=== PATIENT | male | born 1970 | race Two or more races ===

== ENCOUNTER → 2021-08-17 11:00 | Outpatient (BNVA) | payer SELFPAY | PROVIDERS: Visit Provider Physician Assistant Medical | DX: Z02.79 Encounter for issue of other medical certificate (principal) ==

== ENCOUNTER 2022-07-16 08:50 | Emergency (ER) | payer OTHER, SELFPAY ==
--- NOTE | ~2022-07-16 | CT_ITS ---
EXAMINATION: CT HEAD WITHOUT CONTRAST CLINICAL INFORMATION: Elevated blood pressure COMPARISON: None TECHNIQUE: Contiguous axial imaging was performed from the skull base to vertex without intravenous administration of contrast. This CT examination was performed using dose optimization techniques as appropriate, variously including the following: *Automated exposure control *Adjustment of mA and/or kV according to patient size (this includes techniques or standardized protocols for targeted exams where dose is matched to indication/reason for exam; i.e. extremities or head) *Use of iterative reconstruction technique DLP: 733 mGy-cm FINDINGS: There is no evidence of acute intracranial hemorrhage or territorial infarction. No abnormal mass effect or midline shift is seen. Sanchez to white matter differentiation is well preserved. No extra-axial fluid collections are identified. No significant volume loss. No hydrocephalus. There is no abnormal attenuation within the brain parenchyma. The osseous structures and soft tissues are normal. The mastoid air cells and visualized portions of the paranasal sinuses are well aerated. CT/CT head/brain wo IV con IMPRESSION: No acute intracranial pathology.
[2022-07-16 09:51] VITALS: BP 200/101; PULSE 59; RESP 18; TEMP 36.8; O2SAT 100; BMI 25.2
[2022-07-16] MEDS: Ondansetron ODT 4 MG TAB.RAPDIS TRANSLINGU (09:55)
--- NOTE | 2022-07-16 11:28 | ECG_ITS ---
Test Reason : HYPERTENSION Blood Pressure : / mmHG Vent. Rate : 054 BPM Atrial Rate : 054 BPM P-R Int : 130 ms QRS Dur : 088 ms QT Int : 412 ms P-R-T Axes : 005 042 045 degrees QTc Int : 390 ms Sinus bradycardia Otherwise normal ECG No previous ECGs available Referred By: Oneal Guerra Electronically Signed By:TEJA CROCKER
--- NOTE | 2022-07-16 11:32 | ED_ITS ---
HPI - General Adult General Chief complaint: Recheck/Abnormal Lab/Rx Stated complaint: HBP Time Seen by Provider: 07/16/22 10:08 Source: patient Mode of arrival: ambulatory Limitations: no limitations History of Present Illness HPI narrative: 51-year-old male history of high blood pressure presents to the ED for ev aluation of some dizziness. Patient states mild left upper molar dental pain due to poor dental hygiene but states having headache and slight dizziness. Patient states he took his blood pressure meds this morning. Patient blood pressure at triage systolic over 200. Patient denies any facial droop, paralysis of extremities, chest pain, shortness of breath, slurred speech or any recent drug use. Related Data Previous Rx's Medication Instructions Recorded amoxicillin 875 mg-potassium 1 tab PO Q12H 10 days #20 tabs 07/16/22 clavulanate 125 mg tablet naproxen 500 mg tablet 500 mg PO BID PRN pain 7 days #20 07/16/22 tabs Allergies Allergy/AdvReac Type Severity Reaction Status Date / Time morphine Allergy Agitated Verified 07/16/22 09:51 Review of Systems Review of Systems: headache. elevated blood pressure. SLight dental pain. Yes all other systems are reviewed and are negative PMFSH Social History Social History Advance Directives: No Advance Directives Information Provided: No Physical Exam ED Vital Signs: Vital Signs - 24 hr 07/16/22 09:51 07/16/22 13:22 07/16/22 14:59 Temperature 98.3 F Pulse Rate 59 54 53 Respiratory Rate 18 16 16 Blood Pressure 200/101 H 214/113 H 168/94 H Pulse Oximetry 100 98 95 Oxygen Delivery Method Room Air Room Air Room Air BMI result Body Mass Index 25.2 Const General: cooperative, healthy appearing, comfortable, no acute distress, well developed, alert, awake and Physically active Orientation/consciousness: oriented to person, oriented to place, oriented to time and patient oriented x3 HENMT Other: Negative for any facial swelling, neck swelling, or submandibular mass Head: Yes normal to inspection, Yes No palpable skull fracture present, Yes normocephalic, Yes atraumatic and No abrasion Ears: hearing grossly normal bilaterally, external ears normal, TM's normal bilaterally, EAC's normal, mastoids normal and no periauricular adenopathy Teeth image: 1. Dental tenderness on palpation. negative for pus discharge, gum swelling, trismsus, drooling, or abscess. Eyes General: appearance normal, both eyes and all related structures Neck Neck: Yes normal visual inspection, Yes full ROM, Yes no lymphadenopathy, Yes no meningeal signs, Yes trachea midline, Yes supple, No anterior neck swelling and No tender Chest Chest palpation & inspection: normal inspection of the chest and normal palpation of entire chest wall Resp Effort & Inspection: normal respiratory effort and able to speak in complete sentences Cardio Jugular venous distension: no JVD Heart sounds: S1 normal heart sound present and S2 normal heart sound present GI Inspection: Yes normal to inspection and No abdominal wall ecchymosis Palpation (GI): Soft to palpation, not firm, nontender, no guarding and not rigid General: No CVA tenderness and Yes no CVA tenderness Back/Spine/Pelvis Back: no CVA tenderness, No CVA tenderness and No back tenderness Skin General skin exam: no rashes or lesions noted and elasticity normal Neuro General: oriented to person, oriented to place, oriented to time, patient oriented x3, gait normal, tone normal, Normal light touch and pain sensation, no meningeal signs, no focal motor deficits and CN's II-XI intact bilaterally Extrem General: Yes normal to inspection and Yes full ROM Psych Appearance: grossly normal, well kempt and not disheveled NIH Stroke Scale Internal: Initial- Upon Arrival Level of Consciousness: Alert Level of Consciousness Questions: Answers both questions correctly Level of Consciousness Commands: Performs both tasks correctly Best Gaze: Normal Visual: No visual loss Facial Palsy: Normal Motor Arm (Right): No drift Motor Arm (Left): No drift Motor Leg (Right): No drift Motor Leg (Left): No drift Limb Ataxia: Absent Sensory: Normal Best Language: No aphasia Dysarthia: Normal Extinction and Inattention: No abnormality Score: 0 Course Course Course Narrative: Patient repeat blood pressure systolic over 200 due to aging high blood pressure patient will have a medical evaluation consisted of cardiac evaluation, labs to check kidney function, and head CT scan. Negative for any neuro deficits. Reevaluation(s) Reevaluation #1: Patient's blood pressure improved with clonidine. Patient's CT scan came back negative for stroke. Patient labs are normal. Two troponins negative. EKG negative STEMI. Patient not having any neural deficits. EKG negative STEMI. Patient is safe for discharge Time: 17:21 Medical Decision Making [facility] Narrative Medical decision making narrative: Hypertension. Toothache Lab Data Result diagrams: 07/16/22 11:54 07/16/22 11:54 Labs: Lab Results 07/16/22 07/16/22 07/16/22 Range/Units 11:54 11:54 11:54 WBC 11.0 H (4.8-10.8) X10*3/uL RBC 4.52 L (4.60-5.80) X10*6/uL Hgb 13.1 L (14.0-18.0) g/dl Hct 37.1 L (42.0-52.0) % MCV 82.1 (80.0-98.0) fL MCH 29.0 (27.0-33.0) pg MCHC 35.3 (31.0-36.0) g/dl RDW 11.9 (11.0-16.0) % Plt Count 250 (160-400) X10*3/uL MPV 10.1 (9.4-12.4) fL Immature Gran % (Auto) 0.5 H (0.0-0.4) % Neut % (Auto) 78.6 H (45-73) % Lymph % (Auto) 13.8 L (20-40) % Traill % (Auto) 4.2 (2-11) % Eos % (Auto) 2.3 (0-4) % Baso % (Auto) 0.6 (0-2) % Lymph # (Auto) 1.5 (1.2-4.9) X10*3/uL Traill # (Auto) 0.5 (0.1-1.2) X10*3/uL Eos # (Auto) 0.3 (0.0-0.4) X10*3/uL Baso # (Auto) 0.1 (0.0-0.2) X10*3/uL Abs Immat Gran (auto) 0.05 H (0.00-0.03) X10*3/uL Absolute Neuts (auto) 8.7 H (2.0-8.3) x10*3/uL Absolute Nucleated RBC 0.000 (0.0-0.012) X10*3/uL Nucleated RBC % (auto) 0.0 (0.0-0.2) /100WBC PT 11.1 (10.0-13.1) SEC INR 1.0 (0.9-1.1) APTT 31.3 (26.0-36.4) SEC Sodium 141 (135-145) mmol/L Potassium 4.4 (3.3-5.1) mmol/L Chloride 107 (96-108) mmol/L Carbon Dioxide 24 (22-29) mmol/L Anion Gap 14 (12-20) BUN 12 (9-16) mg/dL Creatinine 0.75 (0.5-1.4) mg/dL Estim Creat Clear Calc 98.6 Estimated GFR > 60 Random Glucose 110 (60-115) mg/dL Calcium 9.0 (8.4-10.2) mg/dL Total Bilirubin 0.6 (0.0-1.0) mg/dL AST 17 (5-37) U/L ALT 32 (0-40) U/L Alkaline Phosphatase 127 H (39-117) U/L Troponin I High Sens (<3.5-35.0) ng/L Total Protein 7.0 (6.5-8.0) g/dL Albumin 4.5 (3.5-5.0) g/dL 07/16/22 07/16/22 Range/Units 11:54 15:32 WBC (4.8-10.8) X10*3/uL RBC (4.60-5.80) X10*6/uL Hgb (14.0-18.0) g/dl Hct (42.0-52.0) % MCV (80.0-98.0) fL MCH (27.0-33.0) pg MCHC (31.0-36.0) g/dl RDW (11.0-16.0) % Plt Count (160-400) X10*3/uL MPV (9.4-12.4) fL Immature Gran % (Auto) (0.0-0.4) % Neut % (Auto) (45-73) % Lymph % (Auto) (20-40) % Traill % (Auto) (2-11) % Eos % (Auto) (0-4) % Baso % (Auto) (0-2) % Lymph # (Auto) (1.2-4.9) X10*3/uL Traill # (Auto) (0.1-1.2) X10*3/uL Eos # (Auto) (0.0-0.4) X10*3/uL Baso # (Auto) (0.0-0.2) X10*3/uL Abs Immat Gran (auto) (0.00-0.03) X10*3/uL Absolute Neuts (auto) (2.0-8.3) x10*3/uL Absolute Nucleated RBC (0.0-0.012) X10*3/uL Nucleated RBC % (auto) (0.0-0.2) /100WBC PT (10.0-13.1) SEC INR (0.9-1.1) APTT (26.0-36.4) SEC Sodium (135-145) mmol/L Potassium (3.3-5.1) mmol/L Chloride (96-108) mmol/L Carbon Dioxide (22-29) mmol/L Anion Gap (12-20) BUN (9-16) mg/dL Creatinine (0.5-1.4) mg/dL Estim Creat Clear Calc Estimated GFR Random Glucose (60-115) mg/dL Calcium (8.4-10.2) mg/dL Total Bilirubin (0.0-1.0) mg/dL AST (5-37) U/L ALT (0-40) U/L Alkaline Phosphatase (39-117) U/L Troponin I High Sens < 3.5 < 3.5 (<3.5-35.0) ng/L Total Protein (6.5-8.0) g/dL Albumin (3.5-5.0) g/dL ECG Data Interpretation: Sinus bradycardia. Ventricular rate 54. MD interval 130. QRS 88. QTC 390. Negative STEMI Discharge Plan Discharge Clinical Impression: Toothache, Hypertension Patient Disposition: Home, Self-Care Instructions: Hypertension (ED), Toothache (ED) Additional Instructions: Your EKG, blood work, head CT scan came back normal. Please follow-up with her primary care provider. Call them tomorrow to see if he needed an increase in dosage of your high blood pressure medication or new medication altogether. You will be discharged with pain medication. Return to the ED immediately for any headache, blurry vision, slurred speech, facial droop, nausea, vomiting, paralysis of extremities, loss of vision, facial swelling, tongue swelling, neck swelling, drooling, change in voice, or any other concerning symptoms. Also follow-up with dentist for dental pain. Due to Dental pain you will be discharged with antibiotics Prescriptions: New naproxen 500 mg tablet 500 mg PO BID PRN (Reason: pain) 7 Days Qty: 20 0RF amoxicillin-pot clavulanate 875-125 mg tablet 1 tab PO Q12H 10 Days Qty: 20 0RF Stand Alone Forms: Work/School Release Interventions: ED Discharge Assessment Last Done: 07/16/22 17:55 Discharge Date/Time: 07/16/22 17:55 Print Language: Polish
[2022-07-16 11:59] LABS: MANUAL DIFF FLAG NO
[2022-07-16 12:07] LABS: Basophils Absolute Auto 0.1 X10*3/uL (0.0-0.2); Basophils Percent Auto 0.6 % (0-2); Eosinophils Absolute Auto 0.3 X10*3/uL (0.0-0.4); Eosinophils Percent Auto 2.3 % (0-4); Hematocrit 37.1 % (42.0-52.0); Hemoglobin 13.1 g/dl (14.0-18.0); Imm Gran Abs Auto 0.05 X10*3/uL (0.00-0.03); Imm Gran Pct Auto 0.5 % (0.0-0.4); Lymphocytes Absolute Auto 1.5 X10*3/uL (1.2-4.9); Lymphocytes Percent Auto 13.8 % (20-40); Mean Corpuscular HGB Conc 35.3 g/dl (31.0-36.0); Mean Corpuscular Volume 82.1 fL (80.0-98.0); Mean Platelet Volume 10.1 fL (9.4-12.4); Monocytes Absolute Auto 0.5 X10*3/uL (0.1-1.2); Monocytes Percent Auto 4.2 % (2-11); Neutrophils Absolute Auto 8.7 x10*3/uL (2.0-8.3); Neutrophils Percent Auto 78.6 % (45-73); Platelet Count 250 X10*3/uL (160-400); Red Blood Count 4.52 X10*6/uL (4.60-5.80); Red Cell Distribution Width 11.9 % (11.0-16.0)
[2022-07-16 12:14] LABS: Prothrombin Time 11.1 SEC (10.0-13.1)
[2022-07-16 12:16] LABS: Partial Thromboplastin Time 31.3 SEC (26.0-36.4)
[2022-07-16 12:19] LABS: Alanine Aminotransferase 32 U/L (0-40); Albumin Level 4.5 g/dL (3.5-5.0); Alkaline Phosphatase 127 U/L (39-117); Anion Gap 14 (12-20); Aspartate Amino Transferase 17 U/L (5-37); Bilirubin Total 0.6 mg/dL (0.0-1.0); Blood Urea Nitrogen 12 mg/dL (9-16); Carbon Dioxide 24 mmol/L (22-29); Chloride 107 mmol/L (96-108); Creatinine Clr Calc Pharmacy 98.6; Estimated Glomerular Filt Rate > 60; Glucose Random 110 mg/dL (60-115); Potassium 4.4 mmol/L (3.3-5.1); Sodium 141 mmol/L (135-145)
[2022-07-16 12:27] LABS: Troponin-I High Sensitivity < 3.5 ng/L (<3.5-35.0)
[2022-07-16 13:22] VITALS: BP 214/113; PULSE 54; RESP 16; O2SAT 98
--- NOTE | 2022-07-16 13:22 | PC.NURSE ---
remains hypertensive, denies headache. PA aware.
[2022-07-16] MEDS: cloNIDine HCL 0.2 MG TABLET PO (14:05)
[2022-07-16 14:59] VITALS: BP 168/94; PULSE 53; RESP 16; O2SAT 95
[2022-07-16 16:01] LABS: Troponin-I High Sensitivity < 3.5 ng/L (<3.5-35.0)
== END 2022-07-16 17:55 | disposition home or self-care (01) ==
PROVIDERS: Physician Assistant; Emergency Provider Emergency Medicine
DX: R79.89 Other specified abnormal findings of blood chemistry (principal); K08.89 Other specified disorders of teeth and supporting structures; I10 Essential (primary) hypertension; R00.0 Tachycardia, unspecified; Z79.899 Other long term (current) drug therapy
CPT/HCPCS: 36415; 70450; 80053; 84484; 85025; 85610; 85730; 93005; 99284

== ENCOUNTER → 2023-08-09 14:45 | Outpatient (BNVA) | payer SELFPAY | PROVIDERS: Visit Provider Physician Assistant Medical | DX: Z02.79 Encounter for issue of other medical certificate (principal) ==

== ENCOUNTER 2025-10-20 08:56 | Outpatient (AMB) | payer OTHER, SELFPAY ==
--- OUTSIDE RECORDS SUMMARY | 2025-10-14 23:59 | XMS_ITS | Continuity of Care Document ---
Author Organization [facility] Catherine harjit Address [address] [place] [address] [place] [address]- Care Team Providers Care Dispenser Operator Name Role Phone Not on Staff, PCP Primary Care Physician Unavail able Encounter [facility] [place] Date(s): 09/14/25 - 10/14/25 [facility] [address] [place] [address] Drive [address] [place] [address]- Encounter Type: Triage Allergies, Adverse Reactions, Alerts Substance Criticality Severity Reaction Reaction Severity Status morphine Active Medications amiodarone 200 mg oral tablet 200 mg, By Mouth, 2 times a day, # 60 tablet, Refills 0, Tot. Refills 0, Maintenance, 08/29/25 8:50:00 AM EDT, Route to Pharmacy Electronically, [facility], Partial fill upon patient request if the prescription is for a schedule II opioid drug., 175, cm, 08/29/25 8:30:00 EDT, Height, 63.6, kg, 08/25/25 6:44:00 EDT, Dry Weight Start Date: 08/29/25 Stop Date: 09/28/25 Status: Ordered Medication Dispense Status: Completed Quantity: 60.0 Unit: tablet Total Allowed Fills: 1 Fills Dispensed: 0 amLODIPine 5 mg oral tablet 5 mg, 1, tablet, By Mouth, Daily, # 90 tablet, Refills 0, Tot. Refills 0, Maintenance, 10/01/25 10:52:00 AM EST, Route to Pharmacy Electronically, [facility]/pharmacy #[id number], Partial fill upon patient requestif the prescription is for a schedule II opioid drug., 175, cm, 10/01/25 10:34:00 EST, Height, 63.6, kg, 08/25/25 6:44:00 EDT, Dry Weight Start Date: 10/01/25 Status: Ordered Medication Dispense Status: Completed Quantity: 90.0 Unit: tablet Total Allowed Fills: 1 Fills Dispensed: 0 aspirin 81 mg oral delayed release tablet 1 tablet = 81 mg, By Mouth, Daily, for 60 days, # 60 tablet, 0 Refills, Hard Stop 11/07/25 9:47:00 AM EST, 09/08/25 9:47:00 AM EST, EC Tablet, [id number], Partial fill upon patient request if the prescription is for a schedule II opioid drug., 175, cm, 09/08/25 9:17:00 EST, Height, 63.6, kg,08/25/25 6:44:00 EDT, Dry Weight Start Date: 09/08/25 Stop Date: 11/07/25 Status: Ordered Medication Dispense Status: Completed Quantity: 60.0 Unit: tablet Total Allowed Fills: 1 Fills Dispensed: 0 Aspirin Low Dose 81 mg oral delayed release tablet 1 tablet = 81 mg, By Mouth, Daily, # 90 tablet, 3 Refills, Maintenance, 10/01/25 10:53:00 AM EST, ECTablet, [id number], Partial fill upon patient request if the prescription is for a scheduleII opioid drug., 175, cm, 10/01/25 10:34:00 EST, Height, 63.6, kg, 08/25/25 6:44:00 EDT, Dry Weight Start Date: 10/01/25 Status: Ordered Medication Dispense Status: Completed Quantity: 90.0 Unit: tablet Total Allowed Fills: 4 Fills Dispensed: 0 atorvastatin 80 mg oral tablet 1 tablet = 80 mg, By Mouth, Daily at bedtime, # 90 tablet, 3 Refills, Maintenance, 11/07/25 9:47:00 AM EST, Tablet, [id number], Partial fill upon patient request if the prescription is for a schedule II opioid drug., 175, cm, 10/01/25 10:34:00 EST, Height, 63.6, kg, 08/25/25 6:44:00 EDT, DryWeight Start Date: 11/07/25 Status: Ordered Medication Dispense Status: Completed Quantity: 90.0 Unit: tablet Total Allowed Fills: 4 Fills Dispensed: 0 atorvastatin 80 mg oral tablet 1 tablet = 80 mg, By Mouth, Daily at bedtime, for 60 days, # 60 tablet, 0 Refills, Hard Stop 11/07/25 9:47:00 AM EST, 09/08/25 9:47:00 AM EST, Tablet, [facility]/pharmacy #[id number], Partial fill upon patient request if the prescription is for a schedule II opioid drug., 175, cm, 09/08/25 9:17:00 EST, Height, 63.6, kg, 08/25/25 6:44:00 EDT, Dry Weight Start Date: 09/08/25 Stop Date: 11/07/25 Status: Ordered Medication Dispense Status: Completed Quantity: 60.0 Unit: tablet Total Allowed Fills: 1 Fills Dispensed: 0 furosemide 20 mg oral tablet 1, capsule, By Mouth, Daily, # 7 capsule, Refills 0, Tot. Refills 0, Soft Stop, 08/29/25 8:51:00 AM EDT, Route to Pharmacy Electronically, [facility], Partial fill upon patient request if the prescription is for a schedule II opioid drug., 175, cm, 08/29/25 8:30:00 EDT, Height, 63.6, kg, 08/25/25 6:44:00 EDT, Dry Weight Start Date: 08/29/25 Stop Date: 09/05/25 Status: Ordered Medication Dispense Status: Completed Quantity: 7.0 Unit: capsule Total Allowed Fills: 1 Fills Dispensed: 0 metoprolol succinate 50 mg oral capsule, extended release 1 capsule = 50 mg, By Mouth, Daily, # 90 capsule, 3 Refills, Maintenance, 10/01/25 10:57:00 AM EST, ER Capsule, [facility]/pharmacy #[id number], Partial fill upon patient request if the prescription is for a schedule II opioid drug., 175, cm, 10/01/25 10:34:00 EST, Height, 63.6, kg, 08/25/25 6:44:00 EDT, Dry Weight Start Date: 10/01/25 Status: Ordered Medication Dispense Status: Completed Quantity: 90.0 Unit: capsule Total Allowed Fills: 4 Fills Dispensed: 0 Plavix 75 mg oral tablet 75 mg, 1, tablet, By Mouth, Daily, # 90 tablet, Refills 3, Tot. Refills 3, Maintenance, 11/07/25 9:48:00 AM EST, Route to Pharmacy Electronically, [facility]/pharmacy #[id number], Partial fill upon patient requestif the prescription is for a schedule II opioid drug., 175, cm, 10/01/25 10:34:00 EST, Height, 63.6, kg, 08/25/25 6:44:00 EDT, Dry Weight Start Date: 11/07/25 Status: Ordered Medication Dispense Status: Completed Quantity: 90.0 Unit: tablet Total Allowed Fills: 4 Fills Dispensed: 0 Plavix 75 mg oral tablet 75 mg, 1, tablet, By Mouth, Daily, for 60 days, # 60 tablet, Refills 0, Tot. Refills 0, Hard Stop 11/07/25 9:48:00 AM EST, 09/08/25 9:48:00 AM EST, Route to Pharmacy Electronically, [facility]/pharmacy #[id number], Partial fill upon patient request if the prescription is for a schedule II opioid drug., 175, cm, 09/08/25 9:17:00 EST, Height, 63.6, kg, 08/25/25 6:44:00 EDT, Dry Weight Start Date: 09/08/25 Stop Date: 11/07/25 Status: Ordered Medication Dispense Status: Completed Quantity: 60.0 Unit: tablet Total Allowed Fills: 1 Fills Dispensed: 0 Vashe Topical Solution 475 mL, Topically, 2 times a day, PRN Other, 0 Refills, Maintenance, Solution Start Date: 08/29/25 Status: Ordered Medication Dispense Status: Completed Total Allowed Fills: 1 Fills Dispensed: 0 Problem List Condition Confirmation Course Effective Dates Status Health St atus Informant S/P CABG x 4 Confirmed Active Smoking Confirmed Active Social History Social History Type Response Smoking Status Current every day sm oker; Other: PT WOULD LIKE TO QUIT SMOKING; entered on: 07/09/14 Sex Male Sex Representation Male (finding) Patient Care team information Care Team Personnel Name: Joan Rodriguez RN Position: S RN Member Role: Primary Care Nurse Name: Kimmy Moreira RN Position: S RN Member Role: Primary Care Nurse Name: Bisi Black RN Position: S RN Member Role: Primary Care Nurse Name: Angelica Barone RN Position: [facility] RN Member Role: Primary Care Nurse Name: Not on Staff, PCP Position: [facility] Physician (General Medicine) Member Role: PCP Name: Vinh Rodriguez RN Position: [facility] RN Member Role: Primary Care Nurse Name: Jersey Gallegos RN Position: [facility] RN Member Role: Primary Care Nurse Name: Sharri Cohen RN Position: [facility] RN Member Role: Primary Care Nurse Care Team Related Persons Name: DAVID PATEL Name: JEET MANN Insurance Providers Guarantor name: AUBRIE PATEL [facility] Information #: 1 Payer: [employer] Payer Identifier: JULIAN Member Number: [id number] Group Number: [id number] Subscriber Identifier: JULIAN Relationship to Subscriber: self Coverage Type: MEDICAID Coverage Verification Date: Telecom: JULIAN Address:
--- OUTSIDE RECORDS SUMMARY | 2025-10-14 23:59 | XMS_ITS | Continuity of Care Document ---
Author Organization [facility] Catherine harjit Address [address] [place] [address] [place] [address]- Care Team Providers Care Networking Administrator Name Role Phone Not on Staff, PCP Primary Care Physician Unavail able En[place] [facility] [place](s): 09/14/25 - 10/14/25 [facility] [address] [place] [address] Drive [address] [place] [address]- Encounter Type: Triage Allergies, Adverse Reactions, Alerts Substance Criticality Severity Reaction Reaction Severity Status morphine Active Medications amiodarone 200 mg oral tablet 200 mg, By Mouth, 2 times a day, # 60 tablet, Refills 0, Tot. Refills 0, Maintenance, 08/29/25 8:50:00 AM EDT, Route to Pharmacy Electronically, [facility], Partial fill upon patient request [...] 10:52:00 AM EST, Route to Pharmacy Electronically, [facility]/pharmacy #[id number], Partial fill upon patient requestif the [...] AM EST, 09/08/25 9:47:00 AM EST, Tablet, [id number], Partial fill upon patient request if [...] 8:51:00 AM EDT, Route to Pharmacy Electronically, [facility], Partial fill upon patient request if [...] Maintenance, 10/01/25 10:57:00 AM EST, ER Capsule, [facility]/pharmacy #[id number], Partial fill upon patient request if [...] 9:48:00 AM EST, Route to Pharmacy Electronically, [facility]/pharmacy #[id number], Partial fill upon patient requestif the [...] 9:48:00 AM EST, Route to Pharmacy Electronically, [id number], Partial fill upon patient request [...] Care Nurse Name: Angelica Barone RN Position: [facility] RN Member Role: Primary Care Nurse Name: Not on Staff, PCP Position: [facility] Physician (General Medicine) Member Role: PCP Name: Vinh Rodriguez RN Position: [facility] RN Member Role: Primary Care Nurse Name: Jersey Gallegos RN Position: [facility] RN Member Role: Primary Care Nurse Name: Sharri Cohen RN Position: [facility] RN Member Role: Primary Care Nurse Care Team Related Persons Name: DAVID PATEL Name: JEET MANN Insurance Providers Guarantor name: AUBRIE PATEL [facility] Information #: 1 Payer: [employer] Payer Identifier: JULIAN Member Number: [id number] Group Number: [id number] Subscriber Identifier: JULIAN Relationship to Subscriber: self Coverage Type: MEDICAID Coverage Verification Date: Telecom: JULIAN Address:
--- NOTE | 2025-10-20 09:00 | A.OFFPC_ITS ---
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 Allergies morphine Allergy (Verified 10/20/25 09:02) Agitated Medication List - Last Reconciled 10/20/25 by Froylan Gold MD amlodipine 5 mg PO DAILY aspirin 81 mg PO DAILY atorvastatin 80 mg PO BEDTIME clopidogrel 75 mg PO DAILY naproxen 500 mg PO BID PRN 7 days Tobacco use date assessed: 10/20/25 Dental Screening Dental Screen Date: 10/20/25 Did you have a dental visit in the last 12 months?: No HPI HPI Comments 2 History of Present Illness0 Details History of Present Illness The patient is a 54-year-old male presenting for a follow-up visit after a recent heart surgery and to establish primary care. Coronary Artery Disease: The patient underwent heart surgery on August 24 following an episode of chest compression. The procedure was a Coronary Artery Bypass Graft (CABG). A post-operative echocardiogram on August 26 showed that his heart had improved. He has a cardiology follow-up scheduled in three months and an appointment for cardiac rehabilitation on the . Hypertension: The patient has a history of high blood pressure, which was previously managed by his former primary care physician at [facility]. History of Tobacco Use: The patient quit smoking on the day of his heart attack. Previously, his habit included smoking one cigarette in the morning before work. His mother was also a heavy smoker. Epistaxis: Since his operation, the patient has experienced bleeding with clots from his nose when he blows it in the morning. He denies this issue occurring prior to the surgery and denies bleeding from any other sites, such as his gums or in his urine. Sleep Disturbance: The patient reports poor sleep and frequent awakenings at night since his surgery. He is a side sleeper but now has to sleep on his back due to pain from the surgical site, which is uncomfortable. Prior to his surgery, he used to sleep well but had a history of snoring, though he denies any witnessed apneas. Chronic Back Pain: He has a documented history of chronic back pain, for which he presented to the Emergency Department at [facility] in January 2021. He reports he has not suffered from back pain since approximately [id number]. Surgical History: - Coronary Artery Bypass Graft (CABG) duran maynor on August 24. Medications: - Aspirin - Atorvastatin - Clopidogrel - Amiodarone - Metoprolol - Amlodipine 5 mg Social History: - Tobacco Use: Former smoker, quit on day of his heart attack. 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 - Marital Status: He has a partner who s leeps with him. Family History: - Denies family history of colon cancer. - Reports his mother was a heavy smoker. Diagnostic Results: - Echocardiogram (August 26): Showed im provement in cardiac function. Past Medical History - Coronary Artery Disease - Essential Hypertension - History of tobacco use, quit recently - History of chronic back pain, resolved - Hospitalization: He has not been hospi talized for any other reason. Health Maintenance - The patient is 54 years old and has ne jazmyn had a colonoscopy. - Colon cancer screening with Cologuard will be ordered. - Due to his smoking history, a referral will be made to pulmonology for a low- dose CT scan for lung cancer screening. - Comprehensive lab work will be ordered , including a complete blood count (CBC), comprehensive metabolic panel (CMP), urinalysis, B12, folate, vitamin D, syphilis, hepatitis B and C, HIV, hemoglobin A1c, lipid panel, and TSH. FOR[facility]LY [facility], [facility] Surgical History (Updated 10/20/25 @ 09:28 by Froylan Gold MD) H/O heart surgery Family History (Updated 10/20/25 @ 09:10 by Rose Allen CMA) Mother HTN (hypertension) Diabetes Father HTN (hypertension) Social History Patient Tobacco Use Status: Former Tobacco user e-Cigarette/Vaping Use: Never Used service: No Current occupational status: employed Cognitive needs: No Hearing needs: No Vision needs: No Review of Systems Narrative Review of Systems - ENT: Reports epistaxis with clots when blowing his nose in the morning. - Constitutional: Reports sleep disturbance and frequent awakenings at night. - Musculoskeletal: Reports pain when lying on his side post-operatively. - Neurological: Denies witnessed apneas during sleep. - Genitourinary: Denies hematuria. - Dental: Denies bleeding from gums. 10-point ROS reviewed and negative except as noted in HPI Physical exam (Primary Care) Vital Signs: Last Vital Signs Temp 97.7 F 10/20/25 09:10 Pulse 66 10/20/25 09:10 BP 143/74 H 10/20/25 09:10 Pulse Ox 100 10/20/25 09:10 Oxygen Delivery Method Room Air 10/20/25 09:10 BMI result Body Mass Index 24.2 Tobacco/Smoking Status: Tobacco use Status Tobacco use date assessed 10/20/25 10/20/25 09:13 Patient Tobacco Use Status Former Tobacco user 10/20/25 09:13 e-Cigarette/Vaping Use Never Used 10/20/25 09:13 Narrative Physical Exam General: Well-appearing, in no acute distress. Vital signs: Within normal limits. HEENT: Normocephalic, atraumatic. PERRLA, EOMI. Conjunctiva clear, sclera anicteric. Oropharynx clear, mucous membranes moist. TMs intact bilaterally. Noted dry blood in nasal passages, likely due to dryness. Neck: Supple, no lymphadenopathy, no thyromegaly, no JVD or carotid bruits. Cardiovascular: RRR, normal S1/S2, no murmurs, rubs, or gallops. Peripheral pulses 2+ and symmetric. No edema. Scar noted on chest from recent CABG surgery. Respiratory: Lungs clear to auscultation bilaterally, no wheezes, rales, or rhonchi. Normal effort. Abdomen: Soft, non-tender, non-distended. Normoactive bowel sounds. No hepatosplenomegaly, no masses. MSK: Full range of motion, no joint swelling or deformity. Normal gait. Reports back pain history, but no current issues. Skin: Warm, dry, intact. No rashes, lesions, or pallor. Neuro: Alert and oriented x3. Cranial nerves II-XII intact. Strength 5/5 throughout. Sensation intact. Reflexes 2+ symmetric. Normal coordination and gait. Psych: Appropriate mood and affect. Normal judgment and insight. Reports sleep disturbances, possibly due to sleep apnea. Office Procedures Flu Questionnaire Does the patient have a severe egg allergy?: No Does the patient have severe life threatening allergies?: No Does the patient have a fever or illness today?: No Has the patient ever had Guillain-[place] Syndrome?: No Has the patient ever had any past reaction to a flu shot?: No Immunizations Fluarix [id number] (PF) 45 mcg (15 mcg x 3)/0.5 mL IM syringe Performing Provider: Froylan Gold MD Performing Location: [facility] Documented (not given) by: Rose Allen CMA on 10/20/25 09:14 Reason Not Given: Patient Refused Coding Level of Care Code New Pt Level 4 (89893) Add On Problem Visit Only Diagnoses CAD (coronary artery disease) I25.10 Hypertension I10 History of tobacco use Z87.891 S/P CABG x 4 Z95.1 Epistaxis R04.0 Loud snoring R06.83 Sleeping difficulty G47.9 Screening for lung cancer Z12.2 Chronic lower back pain M54.50; G89.29 Assessment & Plan Assessment & Plan (1) CAD (coronary artery disease): Code(s): I25.10 - Atherosclerotic heart disease of [place] coronary artery without angina pectoris Category: Medical (2) Hypertension: Code(s): I10 - Essential (primary) hypertension Category: Medical (3) History of tobacco use: Code(s): Z87.891 - Personal history of nicotine dependence Category: Social Hx (4) S/P CABG x 4: Code(s): Z95.1 - Presence of aortocoronary bypass graft Category: Surgical (5) Epistaxis: Code(s): R04.0 - Epistaxis Category: Medical (6) Loud snoring: Code(s): R06.83 - Snoring Category: Medical (7) Sleeping difficulty: Code(s): G47.9 - Sleep disorder, unspecified Category: Medical (8) Screening for lung cancer: Code(s): Z12.2 - Encounter for screening for malignant neoplasm of respiratory organs Category: Medical (9) Chronic lower back pain: Code(s): M54.50 - Low back pain, unspecified; G89.29 - Other chronic pain Category: Medical Plan Consent The patient was presented with two options for colon cancer screening: the Cologuard test or a colonoscopy. The Cologuard test was described as an at-home kit where a stool sample is collected and mailed for analysis. The colonoscopy was explained as a procedure involving a bowel prep drink, sedation, and an internal camera examination. It was explained that a positive Cologuard result would require a follow-up colonoscopy. Given the patient's low-risk status with no family history of colon cancer, the Cologuard test was recommended, and the patient agreed to this option. The patient was also asked to sign a release form to authorize the request for his medical records from his previous providers. Patient was informed and verbally consented to the use of an ambient scribe for clinic note documentation during this visit. Plan 1. Coronary Artery Disease, Status Post-Cabg - Continue current medications, including aspirin, atorvastatin, clopidogrel, and metoprolol. - The patient has an appointment to begin cardiac rehabilitation on the . - Follow up with his shell mold bonder in three months. 2. Essential Hypertension - Continue amlodipine 5 mg. - Further assessment will include results from ordered lab work and a home sleep study to investigate potential secondary causes like sleep apnea. 3. Epistaxis - The likely cause is dryness in the air, and the patient is advised to use a humidifier in his room. - A complete blood count (CBC) will be checked to rule out underlying hematologic issues. - If symptoms persist despite using a humidifier, further investigation will be pursued. 4. Sleep Disturbance And Snoring - An at-home sleep study will be ordered to assess for sleep apnea, given his risk factors of hypertension, smoking history, and snoring. 5. Health Maintenance: Colon Cancer Screening - Order Cologuard test for colon cancer screening, as the patient is 54 and has never been screened. - The Cologuard test was chosen as he is considered low risk with no family history of colon cancer. 6. Health Maintenance: Lung Cancer Screening - A referral will be placed to a solar installer technician for a low-dose CT scan to screen for lung cancer due to his history of smoking. Discussion Notes I introduced myself and established this visit as a new primary care appointment and a follow-up for his recent cardiac surgery. We discussed his new symptom of morning nosebleeds, and I explained that it is likely due to dry air and recommended trying a humidifier, reassuring him it is unlikely to be serious as the bleeding is localized. I reviewed the need for age- and risk-appropriate health screenings. For colon cancer screening, I explained the two options, Cologuard and colonoscopy, and we agreed to proceed with Cologuard given his low-risk profile. Due to his history of smoking, I recommended a low-dose CT scan of the lungs and will refer him to a solar installer technician. We also discussed his poor sleep and history of snoring, and I recommended an at-home sleep study to rule out sleep apnea as a contributing factor to his hypertension. I explained that we will order comprehensive lab work to get a baseline of his overall health and that he will need to sign a consent to request his prior medical records. The plan is for him to follow up in two weeks to review the results of all tests. Patient Instructions - Go to the lab to have your blood and urine tests done. - You will be contacted about scheduling your Cologuard test for colon cancer screening. - You will receive a call from a lung specialist's office to schedule a low-dose CT scan of your lungs. - You will be contacted to arrange an at-home sleep study. - Use a humidifier in your bedroom at night to help with your nosebleeds. - If the nosebleeds continue or get worse even with the humidifier, please call our office. - Continue taking all your current medications as they have been prescribed. - Call to schedule your follow-up appointment with your heart doctor. - Go to your cardiac rehab appointment on the . - Please return to this office for a follow-up visit in two weeks to go over your test results. Medical Decision Making The patient is a 54-year-old male establishing care following a recent CABG. The primary focus of the visit was to establish a primary care relationship, manage his post-operative status, and address necessary health maintenance. His new complaint of morning epistaxis is most likely attributable to environmental factors such as dry air, given the timing of onset in the colder months and the absence of other signs of a bleeding diathesis like bleeding gums or hematuria; however, a CBC will be checked to rule out any underlying coagulopathy. Given the patient's age and lack of prior screening, colon cancer screening is indicated. Cologuard was chosen over colonoscopy as the initial step due to his low-risk status, with no family history of colon cancer. Lung cancer screening with a low-dose CT scan is warranted based on his significant smoking history, and a referral to pulmonology is appropriate. Undiagnosed obstructive sleep apnea is a significant consideration given his constellation of hypertension, snoring, and history of smoking; therefore, an at-home sleep study is a necessary diagnostic step. The overall plan involves gathering comprehensive baseline data through labs and diagnostic studies to formulate a long-term, evidence-based management strategy, with a follow-up in two weeks to review these findings. Total Time Statement 45 min Total time spent caring for the patient today includes pre-visit chart review, documentation, review of laboratory and diagnostic imaging results, medication reconciliation, medically necessary evaluation, counseling on diagnoses, care coordination, ordering appropriate tests and medications, review of tests performed by other providers, reporting test results to the patient, and communication with other healthcare providers. Orders: Orders 2 Influenza [id number] Immunization Today Z23 - Encounter for immunization Comprehensive Met. Panel Today Z13.9 - Encounter for screening, unspecified Hepatitis C Antibody Today Z13.9 - Encounter for screening, unspecified TSH reflex Free T4 Today Z13.9 - Encounter for screening, unspecified UA CC w/rflx Micro + Cult Today Z13.9 - Encounter for screening, unspecified Vitamin D 25-OH (D2 and D3) Today Z13.9 - Encounter for screening, unspecified Complete Blood Count Auto Diff Today Z13.9 - Encounter for screening, unspecified Hepatitis B Surface Antigen Today Z13.9 - Encounter for screening, unspecified Syphilis Screen Today Z13.9 - Encounter for screening, unspecified HIV Ab/Ag Today Z13.9 - Encounter for screening, unspecified Lipid Panel Today Z13.9 - Encounter for screening, unspecified Vitamin B12 and Folate Today Z13.9 - Encounter for screening, unspecified Hemoglobin A1c Today Z13.9 - Encounter for screening, unspecified Magnesium Today Z13.9 - Encounter for screening, unspecified Hepatitis B Surface Antibody Today Z13.9 - Encounter for screening, unspecified Microalbumin, Random (w Creat) Today Z13.9 - Encounter for screening, unspecified RT home sleep study Today G47.9 - Sleep disorder, unspecified, R06.83 - Snoring Referrals 2 Pulmonology Referral Z12.2 - Encounter for screening for malignant neoplasm of respiratory organs Cologuard Test Z12.11 - Encounter for screening for malignant neoplasm of colon, Z12.12 - Encounter for screening for malignant neoplasm of rectum Medications: Discontinued 2 amoxicillin-pot clavulanate 875-125 mg Discontinued Reason: Patient Completed Course 1 tab PO Q12H 10 days 20 tabs 0RF
[2025-10-20 09:10] VITALS: BP 143/74; PULSE 66; TEMP 36.5; O2SAT 100; BMI 24.2
--- OUTSIDE RECORDS SUMMARY | 2025-10-20 09:22 | XMS_ITS | Clinical Summary ---
Author Organization [address] Address [address] [place] [id number] Phone Care Team Providers Care Psychiatric Cns Name Role Phone Marlon Bradford MD Primary Care Provider [phone] Allergies Active Allergy Reactions Criticality Noted Date Comments Morphine Itching 09/14/2021 Medications amLODIPine (NORVASC) 5 mg tablet TAKE 1 TABLET BY MOUTH EVERYDAY AT BEDTIME 09/08/2022 Active omeprazole (PriLOSEC) [address] capsule Take 1 Capsule by mouth daily. 07/20/2022 Active naproxen (NAPROSYN) 500 mg tablet 07/16/2022 Active buPROPion SR (WELLBUTRIN SR) 150 mg 12 hr tablet Take 1 tablet by mouth 2 times daily. 09/14/2021 Active Active Problems Problem Noted Date Diagnosed Date Overweight 08/16/2022 Primary hypertension 08/16/2022 Rash of body 08/16/2022 Chronic left-sided low back pain 08/01/2021 Overview (10/16/2024): some episodic symptoms into LLE Current smoker 08/01/2021 Decreased vision 08/01/2021 Overview (10/16/2024): Some decrease in both eyes L>R Nonintractable headache 08/01/2021 Immunizations Immunization Administration Dates Next Due Tdap Tetanus diptheria acell ular pertussis (Boostrix; Adacel) 7yo and older 02/20/2022 Surgical History Surgery Date Site/Laterality Comments OTHER SURGICAL HISTORY PROCEDURE: DENIES PREVIOUS SURGERY Medical History Medical History Date Comments Patient denies medical problems DX:Patient denies medical problems Family History Medical History Relation Name Comments Diabetes Brother Hypertension Brother Coronary artery disease Father Diabetes Father COPD Mother Diabetes Mother Other: PVD Mother Diabetes Sister 1 2 Relation Name Status Comments Brother Father Mother Sister 1 Sister 2 Social History Tobacco Use Types Packs/Day Years Used Date Smoking Tobacco: Every Day Cigarettes Smokeless Tobacco: Never Alcohol Use Standard Drinks/Week Comments Not Asked 0 (1 standard drink = 0.6 oz pur e alcohol) Sex and Gender Information Value Date Recorded Sex Assigned at Not on file Legal Sex Male 1:55 PM EST Gender Identity Not on file Sexual Orientation Not on file Last Filed Vital Signs Vital Sign Reading Time Taken Comments Blood Pressure 142/72 08/16/2022 9:37 AM EDT Pulse 67 08/16/2022 9:37 AM EDT Temperature - - Respiratory Rate - - Oxygen Saturation - - Inhaled Oxygen Concentration - - Weight 69.4 kg (153 lb) 08/16/2022 9:37 AM EDT Height 162.6 cm (5' 4 ) 08/16/2022 9:37 AM EDT Body Mass Index 26.26 08/16/2022 9:37 AM EDT Plan of Treatment Health Maintenance Due Date Last Done Comments Colorectal Cancer Screening: Colonoscopy 1971 Hepatitis B Vaccines (1 of 3 - 19+ 3-dose series) 1990 Pneumococcal Vaccine: 50+ Ye ars (1 of 2 - PCV) 1990 Zoster Vaccines (1 of 2) 2021 HIV Screening 10/08/2022 Hepatitis C Screening 10/08/2022 Hypertension/CHF/CAD Annual BMP Blood Test 10/08/2022 08/17/2021 Social Influencers of Health Screening 10/08/2022 Depression Screening 10/29/2024 COVID-19 Vaccine (1 - 2024-2 6 season) 2025 Influenza Vaccine (#1) 2025 Cholesterol Screening (Lipid Panel) 08/17/2026 08/17/2021 DTaP,Tdap,and Td Vaccines (2 - Td or Tdap) 02/21/2032 02/20/2022 RSV Immunization Adult Patie nts (1 - 1-dose 75+ series) 2046 HIB Vaccines Aged Out No longer eligi ble based on patient's age to complete this topic HPV Vaccines Aged Out No longer eligi ble based on patient's age to complete this topic Hepatitis A Vaccines Aged Out No long er eligible based on patient's age to complete this topic IPV Vaccines Aged Out No longer eligi ble based on patient's age to complete this topic MMR Vaccines Aged Out No longer eligi ble based on patient's age to complete this topic Meningococcal ACWY Vaccine Aged Out N o longer eligible based on patient's age to complete this topic Meningococcal B Vaccine Aged Out No l onger eligible based on patient's age to complete this topic RSV Immunization Patients Un elysia 20 months Aged Out No longer eligible b ased on patient's age to complete this topic Varicella Vaccines Aged Out No longer eligible based on patient's age to complete this topic Procedures Procedure Name Priority Date/Time Associated Diagnosis Comments ANNUAL BMP BLOOD TEST Routine 08/17/2021 LIPID PANEL Routine 08/17/2021 from Last 3 Months or Most Recently Relevant to Health Maintenance Results * Annual BMP Blood Test (08/17/2021) Pathologist [facility] Annual BMP Blood Test Abstracted Historical Provider HEALTH MAINTENANCE Final Result * (ABNORMAL) Lipid panel (08/17/2021) LDL/HDL Ratio 5(A) 0 - 4 Triglycerides 107 0 - 150 mg/dL Cholesterol 171 0 - 200 mg/dL HDL 37(A) >=40 mg/dL LDL Cholesterol 113(A) 0 - 100 mg/dL Blood Venous blood specimen / Unknown Historical Provider LAB BLOOD ORDERABLES Guera l Result from Last 3 Months or Most Recently Relevant to Health Maintenance Care Teams Psychiatric Cns Relationship Specialty Start Date End Date Marlon Bradford MD PCP - General Internal Medicine 09/14/21
== END 2025-10-20 09:43 | disposition home or self-care (01) ==
LOC: HO.HMCFMS 08:57
PROVIDERS: PCP Student in an Organized Health Care Education/Training Program; Visit Provider Student in an Organized Health Care Education/Training Program
DX: I25.10 Atherosclerotic heart disease of native coronary artery without angina pectoris (principal); I10 Essential (primary) hypertension; R04.0 Epistaxis; R06.83 Snoring; M54.50 Low back pain, unspecified; G47.00 Insomnia, unspecified; Z28.21 Immunization not carried out because of patient refusal; Z87.891 Personal history of nicotine dependence; Z95.1 Presence of aortocoronary bypass graft

== ENCOUNTER 2025-10-20 08:56 | Outpatient (REF) | payer OTHER, SELFPAY ==
[2025-10-20 13:44] LABS: Appearance Urine Clear; Glucose Urine UA Negative (Negative); PH 5.5 (5.0-9.0); Specific Gravity - Urine 1.020 (1.005-1.025); UMIC TRIGGER UACC YES
[2025-10-20 13:48] LABS: MANUAL DIFF FLAG NO
[2025-10-20 13:51] LABS: UACC Culture Trigger YES
[2025-10-20 13:57] LABS: Hematocrit 37.9 % (42.0-52.0); Hemoglobin 12.4 g/dl (14.0-18.0); Imm Gran Abs Auto 0.04 X10*3/uL (0.00-0.03); Imm Gran Pct Auto 0.5 % (0.0-0.4); Lymphocytes Absolute Auto 1.7 X10*3/uL (1.2-4.9); Mean Corpuscular HGB Conc 32.7 g/dl (31.0-36.0); Mean Corpuscular Hemoglobin 27.3 pg (27.0-33.0); Mean Corpuscular Volume 83.5 fL (80.0-98.0); NRBC Abs Auto 0.000 X10*3/uL (0.0-0.012); NRBC Pct Auto 0.0 /100WBC (0.0-0.2); Platelet Count 299 X10*3/uL (160-400); Red Blood Count 4.54 X10*6/uL (4.60-5.80); White Blood Count 8.6 X10*3/uL (4.8-10.8)
[2025-10-20 14:28] LABS: Albumin Level 4.8 g/dL (3.5-5.0); Alkaline Phosphatase 154 U/L (39-117); Anion Gap 11 (12-20); Aspartate Amino Transferase 27 U/L (5-37); Blood Urea Nitrogen 14 mg/dL (9-16); Calcium 9.6 mg/dL (8.4-10.2); Carbon Dioxide 27 mmol/L (22-29); Chloride 106 mmol/L (96-108); Cholesterol 136 mg/dL (<200); Estimated Glomerular Filt Rate > 60; HDL Cholesterol 38 mg/dL (>40); Magnesium 2.1 mg/dL (1.6-2.6); Potassium 3.9 mmol/L (3.3-5.1); Sodium 140 mmol/L (135-145); Total Protein 7.8 g/dL (6.5-8.0); Triglycerides 86 mg/dL (<150)
[2025-10-20 14:33] LABS: Alanine Aminotransferase 42 U/L (0-40)
[2025-10-20 14:37] LABS: Microalbum/Creatinine Ratio Ur 6.4 ug/mg cr (<30)
[2025-10-20 14:50] LABS: Folate 6.3 ng/mL (> or = 4.0); Vitamin B12 529 pg/mL (200-900)
[2025-10-21 03:42] LABS: Syphilis Screen Nonreactive (Nonreactive)
[2025-10-21 03:59] LABS: HBS Num1 0.38 mIU/mL (0-7.99); HBsAGNum1 0.51 S/CO (0.00-0.99); HIV Num 1 0.07 S/CO (0.00-0.99); Hepatitis B Surface Antigen Negative (Negative); ~HepC Num1 0.10 S/CO (0.00-0.79); ~Hepatitis B Surface Antibody NONREACTIVE (Nonreactive); ~Hepatitis C Antibody Nonreactive (Nonreactive)
[2025-10-24 12:38] LABS: Vitamin D 25-OH, D2 <4 ng/mL; Vitamin D 25-OH, D3 23 ng/mL; Vitamin D 25-OH, Total 23 ng/mL (30-100)
== END 2025-10-20 08:57 | disposition home or self-care (01) ==
LOC: HO.HKASLDS 08:56
PROVIDERS: PCP Student in an Organized Health Care Education/Training Program; Visit Provider Student in an Organized Health Care Education/Training Program
DX: Z12.2 Encounter for screening for malignant neoplasm of respiratory organs (principal); Z13.9 Encounter for screening, unspecified; Z28.21 Immunization not carried out because of patient refusal; I25.10 Atherosclerotic heart disease of native coronary artery without angina pectoris; I10 Essential (primary) hypertension; R04.0 Epistaxis; R06.83 Snoring; G47.9 Sleep disorder, unspecified; M54.50 Low back pain, unspecified; G89.29 Other chronic pain; Z95.1 Presence of aortocoronary bypass graft; Z87.891 Personal history of nicotine dependence
CPT/HCPCS: 36415; 80053; 80061; 81001; 82043; 82306; 82570; 82607; 82746; 83036; 83735; 84443; 85025; 86706; 86780; 86803; 87086; 87340; 87389